=== PATIENT | male | born 1980 | race Caucasian/White ===

== ENCOUNTER 2022-09-13 07:53 | Outpatient (CLI) | payer BC, SELFPAY | END 2022-09-13 07:54 | disposition home or self-care (01) | LOC: NFLDREF 11:45 | PROVIDERS: PCP Family Medicine; Referring Provider Family Medicine; Visit Provider Family Medicine | DX: Z13.1 Encounter for screening for diabetes mellitus (principal); Z13.6 Encounter for screening for cardiovascular disorders | CPT/HCPCS: 80061; 82947 ==

== ENCOUNTER 2022-09-27 15:05 | Outpatient (CLI) | payer BC, SELFPAY | END 2022-09-27 15:06 | disposition home or self-care (01) | PROVIDERS: PCP Family Medicine; Visit Provider Family Medicine | DX: Z00.00 Encounter for general adult medical examination without abnormal findings (principal); E66.9 Obesity, unspecified; Z12.5 Encounter for screening for malignant neoplasm of prostate; F10.10 Alcohol abuse, uncomplicated | CPT/HCPCS: 80076; 82977; 84153 ==

== ENCOUNTER 2023-02-27 15:12 | Outpatient (CLI) | payer BC, SELFPAY | END 2023-02-27 15:13 | disposition home or self-care (01) | PROVIDERS: PCP Family Medicine; Visit Provider Physician Assistant Medical | DX: I10 Essential (primary) hypertension (principal); Z79.899 Other long term (current) drug therapy | CPT/HCPCS: 80076; 84443 ==

== ENCOUNTER 2023-05-12 15:32 | Outpatient (CLI) | payer BC, SELFPAY | END 2023-05-12 15:33 | disposition home or self-care (01) | LOC: NFLDREF 15:32 | PROVIDERS: PCP Family Medicine; Visit Provider Family Medicine | DX: I10 Essential (primary) hypertension (principal) | CPT/HCPCS: 80053 ==